=== PATIENT | male | born 1980 | race Caucasian/White ===

== ENCOUNTER 2019-02-21 19:41 | Inpatient (IN) | payer OTHER ==
[~2019-02-21] VITALS: Ht 180.3 cm; Wt 109.8 kg
[2019-02-21 19:41] VITALS: BP 132/70
[2019-02-21 19:51] LABS: BE(vivo) -1.4 mmol/L (-2 to +3); HCO3 22.3 mmol/L (22.0-26.0); PCO2 34.5 mmHg (35.0-45.0); pH 7.428 (7.360-7.450); sO2 95.9 % (92.0-98.0)
[2019-02-21 19:58] LABS: HEMATOCRIT 38.2 % (42.0-52.0); HEMOGLOBIN 13.1 gm/dL (14.0-18.0); MCH 28.1 pg (26.0-34.0); MCHC 34.4 g/dL (28.0-37.0); MCV 81.9 fL (80.0-100.0); PLATELET COUNT 534 thou/uL (150-400); RBC 4.67 mil/uL (4.50-6.00); RDW 13.7 % (10.5-14.5); WBC 17.7 thou/uL (4.0-11.0)
[2019-02-21 20:04] LABS: ANION GAP 11 mmol/L (7-16); BUN 10 mg/dL (7-18); CALCIUM 9.6 mg/dL (8.5-10.1); CHLORIDE 96 mmol/L (98-107); CO2 26 mmol/L (21-32); CREATININE 1.1 mg/dL (0.7-1.3); GLUCOSE 342 mg/dL (74-106); POTASSIUM 3.5 mmol/L (3.5-5.1); SODIUM 133 mmol/L (136-145)
[2019-02-21 20:13] LABS: ALBUMIN 4.1 g/dL (3.4-5.0); DIRECT BILIRUBIN 0.5 mg/dL (<0.1-0.3); SGOT 42 U/L (15-37); SGPT 46 U/L (30-65); TOTAL BILIRUBIN 1.2 mg/dL (<0.1-1.0); TROPONIN-I <0.06 ng/mL (<0.06)
[2019-02-21 20:24] LABS: ABSOLUTE NEUTROPHILS 13.5 thou/uL (1.4-8.2); ANISOCYTOSIS 1+; LARGE PLATELETS OCCASIONAL
[2019-02-21 20:29] LABS: URINE BILIRUBIN NEGATIVE (Negative); URINE BLOOD NEGATIVE (Negative); URINE CLARITY CLEAR; URINE COLOR YELLOW; URINE GLUCOSE-RANDOM* 3+ (Negative); URINE KETONES NEGATIVE (Negative); URINE LEUKOCYTES-REFLEX NEGATIVE (Negative); URINE NITRITE-REFLEX NEGATIVE (Negative); URINE PROTEIN (DIPSTICK) TRACE (Negative); URINE SPECIFIC GRAVITY <= 1.005 (1.005-1.035)
[2019-02-21 23:23] LABS: AMP/METHAMP Negative (Negative); BARBITURATES Negative (Negative); BENZODIAZEPINES Negative (Negative); COCAINE Negative (Negative); METHADONE Negative (Negative); OPIATES POSITIVE (Negative); PCP Negative (Negative)
[2019-02-22] VITALS (36 sets, daily range): BP systolic 110–188; BP diastolic 69–98
--- NOTE | 2019-02-22 04:40 | NUR ---
PT ARRIVED FROM ED TO UNIT @ 0015 WITH BIPAP. ASSESSMENT CHARTED. PT TOLERATING BIPAP AND IS NPO. PT'S PAIN IS BETTER WITH MORPHINE AND LESS ACTIVITY. POSSIBLE PLANS FOR IR FOR ABSCESS I/D. CALL LIGHT IN REACH. CONTINUE TO MONITOR.
[2019-02-22 05:35] LABS: HEMATOCRIT 32.7 % (42.0-52.0); HEMOGLOBIN 11.2 gm/dL (14.0-18.0); MCHC 34.2 g/dL (28.0-37.0); RBC 3.99 mil/uL (4.50-6.00); RDW 13.6 % (10.5-14.5); WBC 12.9 thou/uL (4.0-11.0)
[2019-02-22 05:43] LABS: CALCIUM 9.2 mg/dL (8.5-10.1); CREATININE 0.8 mg/dL (0.7-1.3)
--- NOTE | 2019-02-22 08:27 | EKG ---
[place] [address] [facility] [place] [address] ELECTROCARDIOGRAM REPORT Name: ARNOLD FORD Room #: 236-P ADM IN M.R.#: [id number] ������������������ Admission: 02/21/19 ������������������ Attend Phys: Heron Mccallum MD Discharge: ������������������ Date of : 82 Report #: [id number] ����������������������������������������������������������������� [id number] THIS REPORT FOR: //name// [facility] ED Test Date: 2019-02-21 Test Time: 19:42:31 Pat Name: ARNOLD FORD Department: Room: 236 Gender: M Marketing Financial Analyst: JESSI : 1980 Requested By: Kevin Perez Order Number: [id number] MD: Anthony Krishnamurthy Measurements Intervals [place] Rate: 128 P: 126 DE: 203 QRS: 180 QRSD: 111 T: -13 QT: 347 QTc: 507 Interpretive Statements Sinus tachycardia Prolonged DE interval Poor R wave progression Prolonged QT interval No previous ECG available for comparison Electronically Signed On 02-22-2019 8:26:47 CDT by Anthony Krishnamurthy [email or web address] ��������������������������������������������� <ELECTRONICALLY SIGNED> ���������������������������������������� By: Anthony Krishnamurthy MD, [facility] ��������������������������������������������� 02/22/19 0826 41 41 Anthony Krishnamurthy MD, FACC /EPI
[2019-02-22 11:10] LABS: GLYCOHEMOGLOBIN (HGB A1C) 9.4 % (4.8-5.6)
--- NOTE | 2019-02-22 16:19 | NUR ---
INITIAL ASSESSMENT: IRVING reviewed chart and spoke with nursing and attending physician. Pt was admitted from home due to hypoxic respiratory failure. Pt with right sided pneumonia. Pt is currently on continuous bipap. Pt is febrile and is on IV abx. SW met with pt at bedside. Introduced role of SW. Pt is alert/orientated x 4. Pt able to answer simple questions while on bipap. Pt reports he lives at home. Prior to admission, he was working at [employer] and is independent with ADLs. No use of DME. Pt has a girlfriend, Aleksandar, who is listed as a contact. Pt does not wish to have anyone else listed as a contact. Pt with hx of DM type 2. Pt states he has the equipment and supplies at home to check his blood sugar, but does not check it. Pt does not have a PCP or health insurance. [employer] to meet with pt to assist with possible Medicaid application and/or financial assistance application for [facility]. Pt to be provided with Health Resource Guide and prescription discount cards. Plan is for pt to discharge back home when medically stable. IRVING is following to assist as needed with discharge planning.
--- NOTE | 2019-02-22 18:16 | NUR ---
PATIENT RESTING QUIETLY ON BIPAP, FIO2 WEANED TO 50% WITH SAT 94%. PLACED ON 12L/HIGH FLOW NASAL CANNUAL FOR MEAL AND TOLERATED WITHOUT DESATURATION. BREATHE SOUNDS CLEAR IN THE UPPER LOBES RIGHT SIDE MORE DIMINISHED THAN LEFT. TEMP DOWN AFTER TYLENOL. RESP RATE IN THE LOWER 20.S AT REST BUT UP TO THE 40'S WHEN OFF BIPAP. MONITOR SINUS TACH. USING CELL PHONE. CAN CONVERSE WITH STAFF IN SHORT SENTENCES. CULTURES SENT AND RESULTS ARE PENDING. REASSURANCE GIVEN.
[2019-02-23] VITALS (32 sets, daily range): BP systolic 118–195; BP diastolic 69–115
--- NOTE | 2019-02-23 00:51 | NUR ---
ASSUMED CARE OF PT AT 1900 YESTERDAY. PT ON BIPAP, FIO2 HAS BEEN TITRATED DOWN TO 45%. PT HAS BEEN FEBRILE SINCE INITIAL ASSESSMENT. ROOM HAS BEEN COOLED, ICE PACKS APPLIED, AND TYLENOL HAS BEEN GIVEN TWICE. PT'S TEMP WAS NOT IMPROVING INITIALLY, BUT IS NOW SLOWLY STARTING TO COME DOWN. PT DENIED PAIN AT THE BEGINNING OF THE SHIFT, BUT MORPHINE JUST GIVEN FOR INCREASING PAIN IN THE RIGHT CHEST. NO ANXIETY SO FAR TONIGHT, PT HAS BEEN CALM AND COOPERATIVE. WILL CONTINUE TO MONITOR.
[2019-02-23 05:25] LABS: HEMATOCRIT 34.4 % (42.0-52.0); HEMOGLOBIN 11.5 gm/dL (14.0-18.0); MCH 27.8 pg (26.0-34.0); MCHC 33.4 g/dL (28.0-37.0); RBC 4.15 mil/uL (4.50-6.00); RDW 13.6 % (10.5-14.5); WBC 13.7 thou/uL (4.0-11.0)
[2019-02-23 05:39] LABS: CALCIUM 9.5 mg/dL (8.5-10.1); CREATININE 0.9 mg/dL (0.7-1.3); POTASSIUM 4.3 mmol/L (3.5-5.1)
--- NOTE | 2019-02-23 07:32 | NUR ---
PT'S TEMP CONTINUED TO BE ELEVATED THIS MORNING. Brenna LOW SCALE MECHANIC NOTIFIED AND SAID TO CONTINUE WITH TYLENOL. TYLENOL GIVEN AGAIN THIS MORNING, WITH NO IMPROVEMENT WHEN REASSESSED. THIS INFORMATION WAS PASSED ON TO DUNG REYES.
[2019-02-23 10:57] LABS: APTT 38.9 Seconds (24.5-32.8); INR 1.1; PROTIME 11.4 Seconds (9.3-11.4)
--- NOTE | 2019-02-23 18:39 | HC ---
[facility] [place] [address] CONSULTATION Name: ARNOLD FORD Room #: 236-P [facility] IN M.R.#: [id number] Admission: 02/21/19 ������������������ Attend Phys: Heron Mccallum MD Discharge: ������������������ Date of : 82 Report #: [id number] THIS REPORT FOR: //name// CC: Nils WATT PCP DATE OF SERVICE: 02/22/2019 PULMONARY CONSULTATION REFERRAL PHYSICIAN: Heron Mccallum M.D. REASON FOR REFERRAL: Pneumonia. HISTORY OF PRESENT ILLNESS: The patient is a 38-year-old white male who presents to the ED with acute onset of chest pain and dyspnea. A Pulmonary consultation was requested. The patient recently underwent cholecystectomy. He was doing fairly well until the day of presentation. He started to develop sharp right-sided pleuritic-type chest pain with dyspnea, radiating. He also complained of diaphoresis. Pain radiated to the back. It was felt to be sharp and stabbing. Chest x-ray and chest CT were reviewed, showing consolidation in the right lower lung field. CT chest shows a wedge-shaped consolidation abutting the pleura in the approximate lateral basal segment of the right lower lobe, with hypodensity within the consolidation. Small right-sided pleural effusion is seen. Otherwise, the patient denies any past history of chronic lung disease or recent nausea or vomiting. PAST MEDICAL HISTORY: Otherwise unremarkable, other than the cholecystectomy. ALLERGIES: PENICILLIN, REACTIONS NOT SPECIFIED. HOME MEDICATIONS: None. FAMILY HISTORY: Noncontributory. SOCIAL HISTORY: The patient is a lifetime nonsmoker. Denies any alcohol use, denies any recreational drug use. REVIEW OF SYSTEMS: Negative; otherwise, as mentioned above. PHYSICAL EXAMINATION: [facility] [address] [place] [address] CONSULTATION Name: ARNOLD FORD Room #: 236-[facility] IN .R.#: [id number] Admission: 02/21/19 ������������������ Attend Phys: Heron Mccallum MD Discharge: ������������������ Date of : 82 Report #: [id number] GENERAL: On examination, he is awake, alert. He appears to be in moderate distress due to dyspnea and pain. He is tolerating the BiPAP. VITAL SIGNS: Temperature maximum has been around 102.7 degrees Fahrenheit, pulse is 100, respiratory rate is 20, blood pressure 165/83 mmHg and saturation 97%. HEENT: Normocephalic, atraumatic. NECK: Supple, without any lymphadenopathy or thyromegaly. CHEST: Breath sounds are decreased in the right base. Rales are heard in the base. No wheezes. CARDIOVASCULAR: Normal S1, S2. There are no murmurs or gallops. There is no JVD. There is no carotid bruit. Pulses are 2+/4+ bilaterally. ABDOMEN: Soft, nontender. No organomegaly or masses felt. GENITOURINARY: Deferred. RECTAL: Deferred. EXTREMITIES: There is no edema, cyanosis or clubbing. LABORATORY DATA: Chest x-ray and chest CT as mentioned above. No evidence of pulmonary embolus. There is a peripheral calcified 2.2 cm left lower lobe pole thyroid nodule. Lactic acid is 2.6. Electrolytes are normal. Bicarbonate is 26. Liver enzymes are mildly elevated. WBC is 17,700, without evidence of bandemia. Lymphopenia is noted. Hemoglobin is normal, platelets are mildly increased. Troponin is normal. Arterial blood gas revealed pH of 7.41, pCO2 of 34 and pO2 of 78. IMPRESSION: 1. Pneumonia, right lower lobe, possible necrotizing. There is a questionable history of aspiration. 2. Acute hypoxic respiratory failure due to pneumonia, right lower lobe, possible necrotizing along with severe sepsis. 3. Recent cholecystectomy. RECOMMENDATIONS: For now, I think broad-spectrum antibiotics to cover for presumed pneumonia. Given the presence of probable abscess, I would also cover for gram negative and anaerobes. We will defer antibiotics to Infectious Disease. If the patient does not respond to antibiotics, may consider needle aspiration for further diagnosis. The patient is at risk for developing parapneumonic effusions. We will follow closely. DVT and GI prophylaxis recommended. [address] [address] CONSULTATION Name: ARNOLD FORD Room #: 236-[facility] IN .R.#: [id number] Admission: 02/21/19 ������������������ Attend Phys: Heron Mccallum MD Discharge: ������������������ Date of : 82 Report #: [id number] Thank you for this consultation. ��������������������������������������������� <ELECTRONICALLY SIGNED> ���������������������������������������� By: Fabrizio Turner MD ��������������������������������������������� 02/23/19 1839 1048 1105 Fabrizio Turner MD /nt
--- NOTE | 2019-02-23 19:49 | NUR ---
SHIFT SUMMARY PATIENT REMAINS ON BIPAP AND FEBRILE. TEMP MAX 102.9 DOWN TO THE 100"S AFTER TYLENOL, DR SALGUERO AWARE, NO ORDERS. CHEST ULTRASOUND COMPLETED BUT DID NOT SHOW ENOUGH FLUID TO CONTINUE WITH THE THOROCENTESIS. BP ELEVATED WITH ANXIETY AND MOVEMENT. MONITOR SINUS TACH. POOR APPITITE, TAKING SIPS OF WATER WITH MEDS AND SOME FLUIDS WITH MEALS. REASSURANCE GIVEN.
[2019-02-24] VITALS (54 sets, daily range): BP systolic 90–210; BP diastolic 53–102
--- NOTE | 2019-02-24 04:31 | NUR ---
ASSUMED CARE OF PT. AT 1900. PT. COMPLAINS OF NON CARDIAC CHEST PAIN THAT RADIATES TO THE BACK MORPHINE X2 GIVEN. PT. IS A&O X4, PLEASANT AND COOPERATIVE. PT. REMAINS FEBRILE THROUGHOUT THE NIGHT X3 DOSES OF TYLENOL GIVEN, ALONG WITH ICE PACKS. CESIA GARCIA CONTACTED TO GET HYDRALIZINE ORDERED FOR HTN PRN X2 DOSES GIVEN. PT. REMAINS IN SINUS TACHYCARDIA IN 110S-120S. PT. SWITCHED FROM BIPAP TO HEATED HIGH FLOW TO HAVE BREAK FROM BIPAP. PT. PREFERS BIPAP BECAUSE IT MAKES THE PT. MORE RELAXED AND IS BETTER ABLE TO SLEEP. ASSESSMENTS AND VITAL SIGNS CHARTED. PLAN OF CARE IS TO CONTINUE TO TREAT FOR INFECTION AND MAINTAIN OXYGENTATION WITH BIPAP. WILL CONTINUE TO MONITOR.
[2019-02-24 04:51] LABS: HEMATOCRIT 33.9 % (42.0-52.0); HEMOGLOBIN 11.3 gm/dL (14.0-18.0); MCH 27.6 pg (26.0-34.0); MCHC 33.3 g/dL (28.0-37.0); MCV 82.8 fL (80.0-100.0); RBC 4.09 mil/uL (4.50-6.00); RDW 13.5 % (10.5-14.5); WBC 16.9 thou/uL (4.0-11.0)
[2019-02-24 04:59] LABS: CALCIUM 8.6 mg/dL (8.5-10.1); CREATININE 0.8 mg/dL (0.7-1.3); POTASSIUM 3.4 mmol/L (3.5-5.1)
[2019-02-24 17:38] LABS: BE(vivo) -1.9 mmol/L (-2 to +3); HCO3 23.8 mmol/L (22.0-26.0); PCO2 44.5 mmHg (35.0-45.0); PO2 88.8 mmHg (80.0-100.0); pH 7.346 (7.360-7.450); sO2 96.3 % (92.0-98.0)
[2019-02-24 18:15] LABS: APTT 37.5 Seconds (24.5-32.8); INR 1.1; PROTIME 11.1 Seconds (9.3-11.4)
[2019-02-24 19:15] LABS: CLARITY CLOUDY; COLOR DARK YELLOW; TOTAL VOLUME 9.5 mL
--- NOTE | 2019-02-24 19:21 | NUR ---
CONSULTED TO PLACE A PICC FOR A PATIENT IN ICU POST INTUBATION. ORDER NOTED AND CONSENT PER MEDICAL NECESSITY BY DR. GUTIERREZ. THE RIGHT UPPER ARM BASILIC WAS WIDLEY PATENT. A #5F TRIPLE LUMEN POWER PICC WAS PLACED PER HOSPITAL POLICY AFTER A BEDSIDE TIMEOUT WAS COMPLETE. LINE 40CM ADVANCED WITHOUT DIFFICULTY TO 1 CM EXTERNAL. A STAT CHEST XRAY WAS ORDRED, THE PATIENT TRANSFERED TO IR AND IR MD NOTED IN HIS DICTATION THE PICC LINE WAS IN GOOD POSITION FOR USE.
[2019-02-24 19:28] LABS: BF NUCLEATED CELLS 56; BF RBC 3
--- NOTE | 2019-02-24 19:32 | NUR ---
ASSUMED CARE 0730 AM, ALERT AND ORIENTED X4. AFEBRILE THIS MORNING, REMIANS TACHY 108-120/MIN, V/S CHARTED. PATIJASMIN WAS TAKEN TO CT AT 1430, AND HAD LAY FLAT ON THE CT, HE GAETANO INTO RESPITORY DISTRESS AND DR GUTIERREZ NOTIFIED. AT 1500 >PATIENT FEBRILE, BP,HR, AND REPIORY RATE INCREASED. >INTUBATED AND BRONCHOSCPY WAS DONE AT BEDSIDE PLS SEE DR GUTIERREZ REPORT. >SEDATED WITH PROPOFOL AND VERSED. >TAKEN TO IR AND PLACED RT CHEST TUBE. >OG AND PICC LINE PALCED. >BRAYAN WRES RESTARINTS APPLIED FOR PAIENT SAFETY. >NEW POC INTIATED AND WILL CONTINUE TO MONITOR.
[2019-02-24 20:06] LABS: BF MACROPHAGE 3; BF NEUTROPHILS 86
[2019-02-25] VITALS (62 sets, daily range): BP systolic 95–128; BP diastolic 51–76
--- NOTE | 2019-02-25 04:23 | NUR ---
ASSUMED CARE OF PT. AT 1900. PT. RETURNED FROM IR WITH CHEST TUBE IN PLACE AT AROUND 1910. PT. IS RESTLESS AND HAS RESTAINTS BILATERAL WRISTS IN PLACE. PT. REMAINS STABLE OVERNIGHT, WITH STABLE VITAL SIGNS. PRESSURES SOFT AT TIMES DUE TO PROPOFOL. FIO2 TITRATED FROM 100 TO 50% PER RT. PT. REMAINS SINUS TACHYCARDIC. AFEBRILE. NO BM. PT. HAS MODERATE AMOUNT OF DRAINAGE FROM CHEST TUBE AND ADEQUATE URINARY OUTPUT. ASSESSMENTS AND VITAL SIGNS CHARTED. MEDICATION TITRATION CHARTED. PLAN OF CARE IS TO CONTINUE TO MONITOR INFECTION AND MAINTAIN OXYGENATION WITH VENTILATION. WILL CONTINUE TO MONITOR.
[2019-02-25 04:25] LABS: BE(vivo) -5.2 mmol/L (-2 to +3); HCO3 19.4 mmol/L (22.0-26.0); PCO2 34.7 mmHg (35.0-45.0); pH 7.366 (7.360-7.450); sO2 93.2 % (92.0-98.0)
[2019-02-25 05:17] LABS: HEMATOCRIT 29.7 % (42.0-52.0); HEMOGLOBIN 9.9 gm/dL (14.0-18.0); MCH 27.8 pg (26.0-34.0); MCHC 33.3 g/dL (28.0-37.0); MCV 83.4 fL (80.0-100.0); RBC 3.56 mil/uL (4.50-6.00); RDW 13.5 % (10.5-14.5); WBC 12.6 thou/uL (4.0-11.0)
[2019-02-25 05:23] LABS: CALCIUM 9.2 mg/dL (8.5-10.1); CREATININE 0.7 mg/dL (0.7-1.3); POTASSIUM 3.6 mmol/L (3.5-5.1)
[2019-02-25 15:08] LABS: BODY FLUID PROTEIN 5.2 g/dL (())
[2019-02-26] VITALS (75 sets, daily range): BP systolic 111–148; BP diastolic 66–90
[2019-02-26 04:06] LABS: BE(vivo) 0 mmol/L (-2 to +3); HCO3 23.8 mmol/L (22.0-26.0); PCO2 35.7 mmHg (35.0-45.0); PO2 74.5 mmHg (80.0-100.0); pH 7.441 (7.360-7.450); sO2 95.5 % (92.0-98.0)
--- NOTE | 2019-02-26 04:17 | NUR ---
ASSUMED CARE OF PT AT 1900. WHILE ON SEDATION VACATION PT CAN NOD Y/N TO SIMPLE QUESTIONS. DENIES PAIN. HEMODYNAMICALLY STABLE. HEART RATE AND RHYTHM SR ON MONITOR, CAN GET TACHYCARDIC. ADEQUATE URINARY OUTPUT. ADEQUATE DRAINAGE FROM CHEST TUBE. TUBE FEEDS ON HOLD AT 0400 DUE TO HIGH RESIDUAL. HYPOACTIVE BOWEL SOUNDS AND NO BM TONIGHT. PLAN OF CARE IS TO CONTINUE TO MONITOR OXYGENATION WITH VENTILATION AND TO MONITOR CHEST TUBE. ASSESSMENTS AND VITAL SIGNS CHARTED. MEDICATION TITRATION CHARTED. WILL CONTINUE TO MONITOR.
[2019-02-26 05:50] LABS: HEMATOCRIT 26.8 % (42.0-52.0); MCH 27.9 pg (26.0-34.0); MCHC 33.7 g/dL (28.0-37.0); MCV 82.7 fL (80.0-100.0); RBC 3.24 mil/uL (4.50-6.00); RDW 13.6 % (10.5-14.5); WBC 11.6 thou/uL (4.0-11.0)
[2019-02-26 06:21] LABS: CALCIUM 8.6 mg/dL (8.5-10.1); CREATININE 0.6 mg/dL (0.7-1.3); POTASSIUM 3.8 mmol/L (3.5-5.1)
--- NOTE | 2019-02-26 10:09 | NUR ---
IRVING reviewed chart and spoke with nursing. Pt remains in the ICU. Pt is intubated and sedated. Pt has chest tube in place and will have surgery tomorrow due to empyema. Nursing to discuss with pt's girlfriend, who his next of kin is, and who would sign pt's consents. IRVING is following to assist as needed with discharge planning.
--- NOTE | 2019-02-26 11:09 | NUR ---
Nutrition: Pt receiving significant calories from propofol at this time. To better meet needs, REC change tube feeding formula to Vital HP to run at 45 mL/hr. If IVFs can D/C suggest 1 packet beneprotein powder in 250 mL water flushes q 6 hrs.
--- NOTE | 2019-02-26 14:44 | NUR ---
PATIENT FOUND SCOOTED DOWN IN BED WITH TIGHT BLOOD COLLECTOR ON ETT WITH HIS LEFT HAND. ETT PARTIALLY OUT AND ABLE TO SPEAK AROUND TUBE. PROPOFOL AND VERSED TURNED OFF. RT HERE AND PATIENT EXTUBATED AT 1428 AND PLACED ON FACE SHIELD AT 60% FIO2. STOMACH DECOMPRESSED AND ORAL GASTRIC TUBE PULLED.
[2019-02-26 16:38] LABS: BE(vivo) -0.2 mmol/L (-2 to +3); HCO3 22.7 mmol/L (22.0-26.0); PCO2 31.3 mmHg (35.0-45.0); PO2 63.4 mmHg (80.0-100.0); pH 7.479 (7.360-7.450); sO2 93.9 % (92.0-98.0)
[2019-02-26 19:15] LABS: BE(vivo) -1.9 mmol/L (-2 to +3); HCO3 20.5 mmol/L (22.0-26.0); PCO2 27.9 mmHg (35.0-45.0); PO2 61.9 mmHg (80.0-100.0); pH 7.485 (7.360-7.450); sO2 93.7 % (92.0-98.0)
[2019-02-26 20:05] LABS: IgG 781 mg/dL (700-1600); IgM 32 mg/dL (20-172)
--- NOTE | 2019-02-26 20:14 | NUR ---
AT DAVID 1830 PATIENT NOTED TO BE IN A FIB WITH RARE COUPLET PVC'S NOTED AND O2 SAT DOWN TO 88%. RT INFORMED AND FACE SHIELD INCREASED TO 60%. DR GARG PAGED BUT NO RESPONSE AND THEN DR BONILLA PAGED AND CALLED WITH ORDERS FOR ABG NOW, CAN PLACE ON BIPAP AND START AMINODARON DRIP. PRIOR PATIENT HAD HELP TO REPOSITION SELF AND TILT SELF, AND WAS RESTING QUIETLY WITH O2 SAT OF 92-93%. REASSURANCE GIVEN.
[2019-02-26 21:56] LABS: BE(vivo) 0.3 mmol/L (-2 to +3); HCO3 23.1 mmol/L (22.0-26.0); sO2 95.6 % (92.0-98.0)
[2019-02-26 22:07] LABS: IgA < 5 mg/dL (90-386)
[2019-02-27] VITALS (18 sets, daily range): BP systolic 99–130; BP diastolic 60–93
[2019-02-27 05:15] LABS: BE(vivo) 0.1 mmol/L (-2 to +3); HCO3 22.8 mmol/L (22.0-26.0); PCO2 30.7 mmHg (35.0-45.0); PO2 138.7 mmHg (80.0-100.0); pH 7.489 (7.360-7.450)
[2019-02-27 06:07] LABS: HEMATOCRIT 29.4 % (42.0-52.0); HEMOGLOBIN 9.7 gm/dL (14.0-18.0); MCHC 33.1 g/dL (28.0-37.0); MCV 84.5 fL (80.0-100.0); RBC 3.48 mil/uL (4.50-6.00); RDW 13.9 % (10.5-14.5)
--- NOTE | 2019-02-27 06:19 | NUR ---
ASSUMED PATIENT CARE AT 1900. PATIENT LYING IN BED AND IS AAOX4. PATIENT CURRENTLY IS IN A-FIB WITH RVR. STARTED THE AMIODARONE DRIP ORDERED. PATIENT IS ALSO BEING PLACED ON BIPAP WITH ABG'S TAKEN. DR. BONILLA NOTIFIED OF RESULTS. PATIENT C/O STOMACH DISCOMFORT. ZOFRAN GIVEN. PATIENT ALSO GIVEN MORPHINE TWICE. PATIENT KEPT NPO FOR PROCEDURE TODAY. HOURLY ROUNDING COMPLETED AND FALL PRECAUTIONS MAINTAINED. PATIENT REMAINS UNCHANGED ON PROGRESSING TOWARDS GOAL.
[2019-02-27 06:21] LABS: CALCIUM 8.4 mg/dL (8.5-10.1); CREATININE 0.6 mg/dL (0.7-1.3)
--- NOTE | 2019-02-27 11:10 | NUR ---
TO PRE-OP PER BED WITH O2 PER VENTIMASK AND AMINODARON INFUSING. PATIENT IS ALERT AND RESPONSIVE
--- NOTE | 2019-02-27 17:06 | PATH ---
[facility] [address] [place] [address] PATHOLOGY RPT PROCEDURE Name: ARNOLD FORD Room #: 236-P ADM IN M.R.#: [id number] ������������������ Admission: 02/21/19 ������������������ Date of : 82 Discharge: Report #: [id number] Path Case #: [id number] Note [facility] Accession Number: [id number] TESTS RESULT FLAG UNITS REF RANGE LAB Clinician Provided Cytology Information No. of containers..01 Other (Miscellaneous) Source: PLEURAL DIAGNOSIS: 02 PLEURAL NEGATIVE FOR MALIGNANT CELLS. SCANT CELLULARITY. THIS INTERPRETATION INCLUDES EVALUATION OF A CELL BLOCK. Pathologist ICD10: 02 J96.01 Signed out by: Gabbie Corrales MD, Pathologist NPI- [id number] Performed by: Sandy De, Residential Monitor ([facility]) Gross description: 01 25ML, YELLOW, CLEAR /LCS FLAG LEGEND: L-Low Normal,H-High Normal,LL-Alert Low,HH-Alert High <-Panic Low,>-Panic High,A-Abnormal,AA-Critical Abnormal Performed at: [address] [place] [address] Pillo Sethi MD, [address] [address] Gabbie Corrales MD, Specimen Comment: A courtesy copy of this report has been sent to Specimen Comment: [phone], . Specimen Comment: Report sent to / DR GARG Performed at: [address], [place], [place] [id number] MD Pillo Sethi MD Phone: [phone]
[2019-02-27 17:29] LABS: BE(vivo) -1.8 mmol/L (-2 to +3); HCO3 25.2 mmol/L (22.0-26.0); PCO2 52.8 mmHg (35.0-45.0); PO2 63.7 mmHg (80.0-100.0); sO2 89.8 % (92.0-98.0)
[2019-02-27 17:30] LABS: pH 7.297 (7.360-7.450)
[2019-02-27 17:58] LABS: HEMATOCRIT 34.3 % (42.0-52.0); HEMOGLOBIN 11.4 gm/dL (14.0-18.0); MCH 27.7 pg (26.0-34.0); MCHC 33.3 g/dL (28.0-37.0); MCV 83.2 fL (80.0-100.0); RBC 4.12 mil/uL (4.50-6.00); RDW 14.1 % (10.5-14.5); WBC 20.5 thou/uL (4.0-11.0)
[2019-02-27 18:10] LABS: CALCIUM 8.7 mg/dL (8.5-10.1); CREATININE 0.7 mg/dL (0.7-1.3); POTASSIUM 4.2 mmol/L (3.5-5.1)
[2019-02-27 18:49] LABS: BE(vivo) -0.5 mmol/L (-2 to +3); HCO3 25.9 mmol/L (22.0-26.0); PCO2 50.1 mmHg (35.0-45.0); PO2 68.6 mmHg (80.0-100.0); pH 7.332 (7.360-7.450); sO2 92.4 % (92.0-98.0)
--- NOTE | 2019-02-27 20:31 | NUR ---
PATIENT RETURNED TO ROOM DIRECTLY FROM OR AT 1650, PLACED ON MONITOR, LINES CALIBRATED AND ASSESSED. CHEST TUBES TO WATER SEAL AND MARKED. PATIENT MONITORED AND WOULD OPEN EYES AND RESTLESS AT TIMES, PROPOFOL TITRATED AND PAIN MEDS GIVEN WITH SOME RELIEF. ABG AND LABS DRAWN PER ORDER AND RATE INCREASED TO 18 PER ORDER. O2 SAT 90 TO 92%. MONITOR SHOWING NSR. RAGHAV AND CUFF PRESSURES ARE COORALATING. REASSURNACE GIVEN AND FRIEND AWARE OF SITUATION.
--- NOTE | 2019-02-27 22:40 | NUR ---
REPORT TO MEGHNA REYES
[2019-02-28] VITALS (13 sets, daily range): BP systolic 119–138; BP diastolic 66–98
[2019-02-28 05:08] LABS: BE(vivo) 2.5 mmol/L (-2 to +3); PCO2 36.3 mmHg (35.0-45.0); PO2 62.3 mmHg (80.0-100.0); pH 7.473 (7.360-7.450); sO2 93.4 % (92.0-98.0)
[2019-02-28 05:22] LABS: HEMATOCRIT 34.3 % (42.0-52.0); HEMOGLOBIN 11.4 gm/dL (14.0-18.0); MCH 27.7 pg (26.0-34.0); MCHC 33.2 g/dL (28.0-37.0); MCV 83.4 fL (80.0-100.0); RBC 4.12 mil/uL (4.50-6.00); RDW 14.2 % (10.5-14.5); WBC 16.3 thou/uL (4.0-11.0)
[2019-02-28 05:30] LABS: CREATININE 0.7 mg/dL (0.7-1.3); POTASSIUM 3.9 mmol/L (3.5-5.1)
[2019-02-28 06:07] LABS: IgG 770 mg/dL (700-1600)
--- NOTE | 2019-02-28 06:37 | NUR ---
END OF SHIFT SUMMARY: Pt has remained stable overnight. Right lateral chest tubes x4 remain patent to water seal, no air leak, sero-sanguinous drainage. Pt remains on vent at FiO2 70%, sat 90-94%. Suctioning small to moderate amounts of thin yellow sputum approximately q 4 hr. Pt lightly sedated with Propofol at 75 mcg/kg/min, and prn IVP Versed and Fentanyl when restless and hypertensive. Remains in soft wrist restraints bilaterally to prevent self extubation. Monitor remains sinus tach, rates 106-116. No episodes of a-fib tonight. Urine output adequate, 950 cc this shift.
--- NOTE | 2019-02-28 17:02 | O ---
[facility] [place] [address] OPERATIVE REPORT Name: ARNOLD FORD Room #: 236-P ADM IN M.R.#: [id number] Admission: 02/21/19 ������������������ Attend Phys: Heron Mccallum MD Discharge: ������������������ Date of : 82 Report #: [id number] THIS REPORT FOR: //name// CC: Nils Mccallum NO PCP DATE OF SERVICE: 02/27/2019 PREOPERATIVE DIAGNOSIS: Empyema, right chest. POSTOPERATIVE DIAGNOSIS: Empyema, right chest. OPERATION: Bronchoscopy, right video-assisted thoracoscopy, right thoracotomy with decortication. SURGEON: Nils Curiel MD SENIOR MECHANICAL ENGINEER: Prince Sheth. ANESTHESIA: General. INDICATIONS: The patient is a 38-year-old with loculated pleural effusion. The patient presented with respiratory distress and had required intubation. Thoracentesis and chest tube placement were done, but this empyema was too organized for this approach. FINDINGS AND TECHNIQUE: After general anesthesia was established, flexible diagnostic bronchoscopy was performed. Some scattered thick secretions were seen and the endobronchial tree was inflamed acutely, but no specific endobronchial lesions were noted. Because the patient had desaturated when the tube was placed, the decision was made to place the bronchial juan jose. This was done using a 6 x 14 Karen catheter placed under bronchoscopic guidance. The patient was positioned with right side up. Exposure was obtained through the right video-assisted thoracoscopy port. The lung appeared to be adhesed to the chest wall and it was not possible to either admit the scope. Digital exploration was done and this was similarly fruitless. Therefore, the exposure was extended to a thoracotomy. Exposure was obtained through posterolateral thoracotomy. Chest was entered through an available interspace. There was a loculated pleural effusion with organized seropurulent collection laterally. The entire right lung was decorticated down to visceral pleura and both fissures were developed. There [facility] [address] [place] [address] OPERATIVE REPORT Name: ARNOLD FORD Room #: 236-P ADM IN .R.#: [id number] Admission: 02/21/19 ������������������ Attend Phys: Heron Mccallum MD Discharge: ������������������ Date of : 82 Report #: [id number] was an abscess seen in the posterolateral portion of the right upper lobe adherent to the fissure right where the confluence of the major and minor fissure were but the abscess was confined to the upper lobe. My suspicion is as it was from reviewing the evolution on the CT scan that these abscesses ruptured and this led to the empyema. When the entire lung had been decorticated down to visceral pleura, the chest was irrigated with copious amounts of saline and the lung was ventilated and with additional fibrin, peel of the lung was removed. When the lung had been decorticated, chest tubes were placed to drain the anterior, lateral, posterior, and inferior pleural surfaces. Chest was closed in the usual fashion. Hemostasis was ascertained prior to chest closure. The patient was taken to the recovery area in good condition having tolerated the procedure well. All counts reported as correct. ��������������������������������������������� <ELECTRONICALLY SIGNED> ���������������������������������������� By: Nils Curiel MD ��������������������������������������������� 02/28/19 1702 1626 1714 Nils Curiel MD /nt
--- NOTE | 2019-02-28 17:02 | HC ---
[facility] [place] [address] CONSULTATION Name: ARNOLD FORD Room #: 236-P ADM IN M.R.#: [id number] Admission: 02/21/19 ������������������ Attend Phys: Heron Mccallum MD Discharge: ������������������ Date of : 82 Report #: [id number] THIS REPORT FOR: //name// CC: Nils WATT [facility] DATE OF SERVICE: 02/24/2019 We were asked by Dr. Turner to see the patient. HISTORY OF PRESENT ILLNESS: The patient is a 38-year-old with parapneumonic effusion. The patient was admitted on 02/21/2019 with shortness of breath and right-sided chest pain. The patient was just intubated and all of the information I have is from the chart and discussion with Dr. Turner. Chart describes the initial symptoms as sharp and stabbing and as mentioned, the patient had shortness of breath. Initial CT scan showed a wedge-shaped infiltrate in the right upper lobe laterally. CT scan showed no evidence of pulmonary embolism, however. Over the course of several days, a new CT scan done today shows progression in the diffuse pneumonic infiltrate on the right and the pleural effusion has also increased significantly with clear loculations in the right lung apex and a fluid collection in the lower lobe region as well. Over the course of the hospitalization, the patient has been afebrile, peaking at 39.4 yesterday at noon. The patient was 39.4 at midnight and this morning and is currently 38.6. The patient was just intubated for increasing respiratory distress and Dr. Turner is in the process of preparing to do bronchoscopy. PAST MEDICAL HISTORY: The patient denies past medical problems. MEDICATIONS: No home medication. ALLERGIES: ALLERGIC TO PENICILLIN. SOCIAL HISTORY: Nonsmoker. No drug use. REVIEW OF SYSTEMS: Not obtainable from the patient. Chart claims the patient is negative for fever or chills. PHYSICAL EXAMINATION: GENERAL: Currently, the patient is just intubated. VITAL SIGNS: Temperature 38.6, heart rate 119, sinus tachycardia, respiratory rate 22-28, blood pressure 149/83. HEENT: No scleral icterus, no arcus. NECK: No mass, no bruit. [facility] [address] [place] [address] CONSULTATION Name: ARNOLD FORD Room #: 236-P [facility] IN [facility].#: [id number] Admission: 02/21/19 ������������������ Attend Phys: Heron Mccallum MD Discharge: ������������������ Date of : 82 Report #: [id number] CHEST: Decreased breath sounds on the right side. HEART: Rhythm regular, tachycardic. ABDOMEN: Soft, no mass, no tenderness. EXTREMITIES: No clubbing, cyanosis or edema. Strong popliteal pulses bilaterally. SKIN: No rash or infection. NEUROLOGIC: No obvious way to test this with the patient paralyzed. IMPRESSION: The patient has empyema, probably parapneumonic with or without lung abscess. We note plans for bronchoscopy. It may be appropriate to perform pleural drainage while the patient is intubated. If this is unsuccessful, then video-assisted thoracoscopy and/or thoracotomy with decortication is appropriate. We will discuss with family prior to performing surgery if they are available. We do not plan surgery at this point, however. Thank you for the consult. ��������������������������������������������� <ELECTRONICALLY SIGNED> ���������������������������������������� By: Nils Curiel MD ��������������������������������������������� 02/28/19 1702 1607 1957 Nils Curiel MD /nt
--- NOTE | 2019-02-28 17:20 | NUR ---
SW reviewed chart and spoke with attending physician. Pt is s/p right thoracotomy and remains on the ventilator. Pt has 4 chest tubes intact. [employer] following pt to assist with financial application, as pt does not have health insurance. SW is following to assist as needed with discharge planning.
--- NOTE | 2019-02-28 19:55 | NUR ---
SHIFT SUMMARY: Pt is progressing, based on precedex infusion, titrated propofol to 10.5mcg/kg/min, and behaviour; Pt remained calm, & followed commands w/ sedation vacation. OG tube was initiated and confirmed by KUB. Tube feeding was initiated @1800 per order. Soft restraints x [address] Mccallum renewed the restraints order @1700 Dr. Curiel present at bedside and ordered to place the pleural chest tubes to wall suction.
[2019-03-01] VITALS (11 sets, daily range): BP systolic 115–138; BP diastolic 74–90
[2019-03-01 04:29] LABS: BE(vivo) 2.7 mmol/L (-2 to +3); HCO3 26.4 mmol/L (22.0-26.0); PCO2 37.4 mmHg (35.0-45.0); PO2 82.5 mmHg (80.0-100.0); pH 7.467 (7.360-7.450); sO2 96.7 % (92.0-98.0)
[2019-03-01 04:46] LABS: CALCIUM 8.1 mg/dL (8.5-10.1); CREATININE 0.7 mg/dL (0.7-1.3); POTASSIUM 3.9 mmol/L (3.5-5.1)
[2019-03-01 04:54] LABS: HEMATOCRIT 32.9 % (42.0-52.0); MCH 27.8 pg (26.0-34.0); MCHC 33.5 g/dL (28.0-37.0); MCV 82.8 fL (80.0-100.0); RBC 3.98 mil/uL (4.50-6.00); RDW 13.6 % (10.5-14.5); WBC 12.3 thou/uL (4.0-11.0)
--- NOTE | 2019-03-01 06:23 | NUR ---
PT REMAINS ON VENT FIO2 50% SATS 96% PT CONTINUES WITH MAINTENANCE IVFs AND PRECEDEX AT MAX WHILE REQUIRING PRN DOSES OF FENTANYL AND VERSED FOR PAIN AND VENT COMFORT. PT TOLERATING TUBE FEEDING AT 45ML/HR WORKING TOWARD GOAL OF 65ML/HR. PT REQUIRED PRN HYDRALAZINE THROUGHOUT SHIFT. PT AFEBRILE.
--- NOTE | 2019-03-01 10:24 | NUR ---
vascular access assessed continued need for PICC line, pt remains in ICU with numerous meds, central line remains appropriate at this time
[2019-03-01 10:56] LABS: BE(vivo) 2.3 mmol/L (-2 to +3); HCO3 25.7 mmol/L (22.0-26.0); PCO2 36.1 mmHg (35.0-45.0); PO2 85.3 mmHg (80.0-100.0); pH 7.471 (7.360-7.450)
--- NOTE | 2019-03-01 11:25 | NUR ---
PT PULLING TV'S IN 700-800'S, FOLLOWS COMMANDS WITH ALL EXTREMITIES, LIFTS HEAD OFF PILLOW. TOLERATED CPAP TRIAL. NOTIFIED DR. BONILLA OF [facility]G'S POST CPAP TRIAL. RECEIVED ORDERS FOR EXTUBATION. OG DC'D, EXTUBATED, THEN PLACED ON FACE MASK 60%. PT SPLINTING CHEST TUBE SITES, THEN TAKING DEEP BREATHS/COUGH WITH MOIST NONPRODUCTIVE COUGH AND PULLED 1250CC ON INCENTIVE SPIROMETER. RESP EVEN AND UNLABORED.
--- NOTE | 2019-03-01 17:05 | PATH ---
[facility] [address] [place] [address] PATHOLOGY RPT PROCEDURE Name: ARNOLD FORD Room #: 236-P ADM IN M.R.#: [id number] ������������������ Admission: 02/21/19 ������������������ Date of : 82 Discharge: Report #: [id number] Path Case #: [id number] [facility] Accession Number: [id number] . 01 Material submitted: . pleura - RIGHT PLEURAL EXUDATE. Modifiers: right . 01 Clinical history: . Empyema . 02 Diagnosis: Pleura, right pleural exudate, decortication: - Marked acute inflammation along with extensive fibrinous exudate, consistent with the provided history of empyema. (IUV:karri; 03/01/2019) QMS/03/01/2019 . 02 Electronically signed: . Gabbie Corrales MD, Pathologist NPI- [id number] . 01 Gross description: . The specimen is received in formalin, labeled "Arnold Ford, right pleural exudate". Received is a large amount of exudate admixed with possible pleural tissue measuring 12.8 x 9.7 x 3.3 cm in aggregate dimensions. No distinct nodules or lesions are noted grossly. The specimen is submitted representatively in cassette A1. (CAA; 02/28/2019) QAC/QAC . 02 Microscopic: . . . 02 Pathologist provided ICD-10: J86.9, R09.1 . 02 CPT . 161631 Specimen Comment: A courtesy copy of this report has been sent to Specimen Comment: [phone], . Specimen Comment: Report sent to / DR GARG Performed at: [address] [id number] MD Pillo Sethi MD Phone: [phone] Performed at: 02 [facility] [address] [place] [address] PATHOLOGY RPT PROCEDURE Name: ARNOLD FORD Room #: 236-P [facility] IN M.R.#: [id number] ������������������ Admission: 02/21/19 ������������������ Date of : 82 Discharge: Report #: [id number] Path Case #: [id number] [address] [place] [id number] MD Gabbie Corrales MD Phone: [phone]
--- NOTE | 2019-03-01 19:30 | NUR ---
PAIN CONTROLLED, PULLING 1250 ON INCENTIVE SPIROMETER, RESP EVEN AND UNLABORED, COUGHS UP SCANT SECRETIONS, ZOFRAN GIVEN FOR SLIGHT STOMACH UPSET WITH RELIEF. PROGRESSING.
[2019-03-02] VITALS (20 sets, daily range): BP systolic 106–144; BP diastolic 66–91
--- NOTE | 2019-03-02 06:00 | NUR ---
A VERY DELIGHTFUL PATIENT. IN GOOD SPIRITS. SINUS RHYTHM LUNGS DIMINISHED RIGHT CHEST DRESSING DRY AND INTACT WITH PAVEL. FENTANYL PRN INCISIONAL PAIN AND ZOFRAN FOR WAVES OF NAUSEA. 1000 CC UO THIS SHIFT. O FROM CHEST TUBES. FEET REMAINS EDEMATOUS. BATHED. WILL CONT TO MONITOR.
[2019-03-02 07:06] LABS: HEMATOCRIT 35.7 % (42.0-52.0); HEMOGLOBIN 11.8 gm/dL (14.0-18.0); MCH 27.4 pg (26.0-34.0); MCHC 33.1 g/dL (28.0-37.0); RBC 4.31 mil/uL (4.50-6.00); RDW 14.3 % (10.5-14.5); WBC 14.1 thou/uL (4.0-11.0)
[2019-03-02 07:20] LABS: CALCIUM 8.5 mg/dL (8.5-10.1); CREATININE 0.6 mg/dL (0.7-1.3); POTASSIUM 3.9 mmol/L (3.5-5.1)
--- NOTE | 2019-03-02 07:51 | NUR ---
PT IS POD #3 RIGHT THORACOTOMY WITH DECORTICATION. EXTUBATED 03/01/19 AND NOW ON 40% FACE SHIELD. PT WITHOUT MEDICAL INSURANCE AND [facility] FROM [facility] ATTEMPTED TO SPEAK WITH PT YESTERDAY BUT PT REQUESTED HE COME BACK. [facility] INDICATES [facility] WILL TRY AGAIN TODAY TO MEET WITH PT. NO WEEKEND DC PLANNED.
[2019-03-03] VITALS (61 sets, daily range): BP systolic 96–146; BP diastolic 66–93
--- NOTE | 2019-03-03 04:41 | NUR ---
ASSUMED CARE OF PT. AT 1900. PT. IS ALERT AND ORIENTED, C/O PAIN AT CHEST TUBE SITE. PT. REMAINS HEMODYNAMICALLY STABLE. AT 0345 PT. PLEURAL TUBE DISCONNECTED FROM SUCTION, CLAMPED, AND QUICKLY PUT BACK IN PLACE, STAT CHEST XRAY ORDERED. NO SIGNS OF PT. DISTRESS, VSS THROUGHOUT, NO SUBQ AIR NOTED. PT. REMAINS ON 2L NC 02, MAINTAINING OXYGENATION. NO BM, ADEQUATE URINARY OUTPUT, DENIES ANY N/V OR STOMACH PAIN. PROGESSING TOWARDS GOALS, WILL CONTINUE TO MONITOR.
[2019-03-03 05:29] LABS: CALCIUM 8.3 mg/dL (8.5-10.1); CREATININE 0.6 mg/dL (0.7-1.3); POTASSIUM 4.3 mmol/L (3.5-5.1)
[2019-03-03 05:34] LABS: HEMATOCRIT 39.3 % (42.0-52.0); HEMOGLOBIN 13.1 gm/dL (14.0-18.0); MCH 27.6 pg (26.0-34.0); MCHC 33.3 g/dL (28.0-37.0); MCV 82.7 fL (80.0-100.0); RBC 4.75 mil/uL (4.50-6.00); RDW 13.9 % (10.5-14.5); WBC 12.3 thou/uL (4.0-11.0)
--- NOTE | 2019-03-03 19:16 | NUR ---
PATIENT PROGRESSING TOWARDS OUTCOME GOALS PAIN CONTROLLED WITH PO MEDS. UP IN THE CHAIR TODAY AND VISITING WITH FAMILY. CHEST TUBE TO WATER SEAL BY DR LYNNE AT [address] NOW NSR AND O2 AT 4L/NC.
[2019-03-04] VITALS (34 sets, daily range): BP systolic 108–147; BP diastolic 69–95
--- NOTE | 2019-03-04 05:01 | NUR ---
ASSUMED CARE OF PT. AT 1900. PT IS ALERT AND ORIENTED X4. COMPLAINS OF PAIN AT CHEST TUBE SITE. NO FRESH DRAINAGE CHEST TUBE SITE, CHEST TUBES ARE PATENT WITH NO AIR LEAKS. PT. REMAINS HEMODYNAMICALLY STABLE AND MAINTAINS OXYGENATION WITH 4L O2 NC. PT HAD 2 BM AND HAD ADEQUATE URINARY OUTPUT. PT. IS PROGRESSING TOWARDS GOALS. WILL CONTINUE TO MONITOR.
--- NOTE | 2019-03-04 16:34 | NUR ---
ASSUMED CARE THIS AM, SLEEPING BUT AWAKES TO VOICE. DR. LYNNE AT BEDSIDE AND CHEST TUBES REMOVED AND DRESSING PLACED. CHEST XRAY COMPLETED AND NO PNUEMO. ORIENTED, NO COMPLAINTS OF PAIN, NAUSEA, OR VOMITING. SR/ST ON MONITOR. WILL PLAN TO MOVE OUT OF ICU TODAY. MARY TLC PICC REMOVED AND 20G TO LFA PLACED. OOB TO CHAIR X 4 HOURS THEN BACK TO BED WHEN COMPLAINING OF CT INCISION SITE PAIN OF 7/10. NORCO 2 TABS GIVEN WITH GOOD RESULTS.
--- NOTE | 2019-03-05 06:00 | NUR ---
PT AWAKE AND ALERT IN GOOD SPIRITS. SLEPT IN CHAIR FOR APPROX 4 HOURS TONIGHT. LUNGS DIMINSHED. VSS SINUS RHYTHM. RIGHT LATERAL RIGHT CHEST TUBE DRESSING DRY AND INTACT. WALKED WITH WALKER TO TOILET AND STEPHIE WELL HAD A MOD AMT LOOSE TO LIQUID BROWN STOOL. REMAINS A CCU OVERFLOW. WILL CONT TO MONITOR CLOSELY. A VERY DELIGHTFIL JULIUS.
[2019-03-05 08:00] VITALS: BP 135/81
[2019-03-05 09:09] LABS: HIV 1 AB Negative (Negative); HIV 2 AB Negative (Negative); HIV ANTIBODY Reactive (Non Reactive)
--- NOTE | 2019-03-05 10:15 | NUR ---
PATIENT TRANSFERRED TO 3W BED 349, AMBULATED WITH WALKER AND PT TO THE ELEVATOR AND THEN VIA W/C. HR UP TO 130 AND O2 SAT 93% ON 4L/NC WITH ACTIVITY AND RETURNED TO BASELINE WITHIN 2 MINUTES. SPOKE IN FULL COMPLETE SENTENCES. PAIN MEDS GIVEN PRIOR TO TRANSFER. TAKING DIET FAIR APPITITE.
[2019-03-05 10:45] VITALS: BP 131/85
--- NOTE | 2019-03-05 11:04 | NUR ---
PT ORIENTED TO RIOOM AND UNIT BERD LOW AND LOCKED, SIDE RAILS UPX 3,C ALL LIGHT IN REACH. TELE APPLIED. WILL CONTINUE TO ASSESS.
[2019-03-05 15:38] VITALS: BP 116/71
--- NOTE | 2019-03-05 16:16 | NUR ---
SW reviewed chart and spoke with nursing and attending physician. Pt transferred to 3W from ICU earlier today and is progressing towards goals for discharge. SW is following to assist as needed with discharge planning.
[2019-03-05 19:46] VITALS: BP 131/84
--- NOTE | 2019-03-06 03:18 | NUR ---
ASSUMED PT CARE AROUND 1900. A&OX4. C/O PAIN IN RT RIBS/POSTERIOR BACK AT INCISION SITE. HOWEVER, PT STATED PAIN WAS TOLERABLE AND HE DID NOT NEED ANY PAIN MEDICATION. PT INSTRUCTED TO CALL RN SHOULD HE NEED PAIN MEDS. DENIES ANY CHEST PAIN OR SOA. VSS. VOIDING ADEQUATELY PER URINAL. PT DID NOT SLEEP MUCH DURING THE NIGHT. NO MAJOR COMPLAINTS THIS SHIFT. RT RIBS/POSTERIOR BACK DRESSING C/D/I WITH PAVEL DRESSING IN PLACE. PROGRESSING TOWARD POC GOALS. WILL CONTINUE TO MONITOR FURTHER.
[2019-03-06 04:28] VITALS: BP 149/93
[2019-03-06 07:32] VITALS: BP 156/94
[2019-03-06 11:03] LABS: HEMATOCRIT 40.6 % (42.0-52.0); HEMOGLOBIN 13.3 gm/dL (14.0-18.0); MCH 27.2 pg (26.0-34.0); MCHC 32.8 g/dL (28.0-37.0); MCV 82.8 fL (80.0-100.0); PLATELET COUNT 472 thou/uL (150-400); WBC 17.7 thou/uL (4.0-11.0)
[2019-03-06 11:25] LABS: ALBUMIN 2.7 g/dL (3.4-5.0); CALCIUM 8.8 mg/dL (8.5-10.1); CREATININE 0.8 mg/dL (0.7-1.3); POTASSIUM 4.6 mmol/L (3.5-5.1); TOTAL BILIRUBIN 0.5 mg/dL (<0.1-1.0); TOTAL PROTEIN 6.3 g/dL (6.4-8.2)
[2019-03-06 11:35] LABS: ABSOLUTE NEUTROPHILS 14.9 thou/uL (1.4-8.2)
[2019-03-06 11:36] LABS: PLATELET ESTIMATE NORMAL
[2019-03-06 11:44] VITALS: BP 121/76
--- NOTE | 2019-03-06 12:47 | NUR ---
Nutrition: at follow up, wt stable from admit. Nsg reported pt with good appetite, no complaints. BG 239-290. Solumedrol and other meds reviewed. BUN 25, Cr 0.6. No recent albumin, last was 4.1. Assess at low nutrition risk.
--- NOTE | 2019-03-06 13:57 | NUR ---
SW reviewed chart and spoke with attending physician. Pt is progressing towards goals for discharge. Awaiting culture results to determine pt's abx at time of discharge. SW met with pt at bedside to provide update. SW offered to have medications priced at [facility] prior to discharge, as pt does not have health insurance. Pt agreeable with plan. SW to provide pt with Health Resource Guide to establish primary care and prescription discount cards. IRVING is following to assist as needed with discharge planning.
[2019-03-06 16:27] VITALS: BP 123/77
--- NOTE | 2019-03-06 18:45 | NUR ---
ABEL HAS AMBULATED ABOUT UNIT TODAY WITH NO DIFFICULTY NOTED. ONE DOSE OF LASIX ADMINISTERED EALIER AND IT WAAS EFFECTIVE SWELLING TO BLE HAVE SIGNIFICANTLY DECREASED. RESPIRATIONS ARE NON LABORED. INCRASED HR WITH EXERTION NOTED.
[2019-03-06 19:27] VITALS: BP 112/69
[2019-03-07 03:54] VITALS: BP 139/94
--- NOTE | 2019-03-07 05:37 | NUR ---
ASSUMED CARE AT 1900, ASSESSMENT COMPLETED x3 OVERNIGHT. PT REPORTS MILD TIGHTNESS TO RIGHT LATERAL CHEST/BACK AT INCISION SITE, STATES IT ISN'T PAIN OR SOB BUT MORE OF A PUSHING DISCOMFORT, AND COMPLAINS HE CAN'T GET COMFORTABLE/FALL ASLEEP OVERNIGHT; GIVEN TYLENOL ONCE. DENIES NAUSEA, TOLERATING DIET. URINATING WELL OVERNIGHT, CLEAR DARK YELLOW URINE. HS ACCUCHECK WAS 136, THIS IS THE LOWEST SUGAR PT HAS HAD, DISCUSSED INSULIN DOSING WITH PT; AGREED TO GIVE 3 UNITS LISPRO RATHER THAN FULL 8 UNITS ACCORDING TO VERY HIGH SCALE; ALSO GAVE PT A SNACK OF PEANUT BUTTER AND JEFFERY CRACKERS. CHANGED BANDAGE COVERING CHEST TUBE SITE, OLD YELLOW DRAINAGE PRESENT, NO ACTIVE DRAINAGE. PAVEL TO BACK INTACT. HAS BEEN SR HR IN 80'S OVERNIGHT, OCCASIONALLY UP TO 120'S WITH ACTIVITY. NO OTHER CONCERNS, WILL CONITNUE TO MONITOR.
[2019-03-07 07:10] VITALS: BP 131/79
--- NOTE | 2019-03-07 09:31 | NUR ---
Assumed care of pt at 0700. Pt alert and oriented x4. Surgical dressing clean and intact. Room air. Pain tolerable. Worked with PT this am and did very well. No other c/o this am. Pt hopes to discharge to home today. Will continue to monitor.
[2019-03-07 11:08] LABS: HEMOGLOBIN 13.5 gm/dL (14.0-18.0); MCH 27.3 pg (26.0-34.0); MCHC 32.8 g/dL (28.0-37.0); MCV 83.1 fL (80.0-100.0); PLATELET COUNT 502 thou/uL (150-400); RBC 4.94 mil/uL (4.50-6.00); RDW 14.1 % (10.5-14.5); WBC 17.7 thou/uL (4.0-11.0)
[2019-03-07 11:18] VITALS: BP 104/55
[2019-03-07 11:40] LABS: ABSOLUTE NEUTROPHILS 15.2 thou/uL (1.4-8.2)
[2019-03-07] MEDS ORDERED: CLEOCIN HCL150 MG PO (12:27)
[2019-03-07] MEDS ORDERED: HYDROCODON-ACE1 EAC7 PO (12:33)
[2019-03-07] MEDS ORDERED: LISINOPRIL10 MG PO (12:33)
[2019-03-07] MEDS ORDERED: NORVASC10 MG PO (12:33)
[2019-03-07] MEDS ORDERED: METFORMIN HCL500 MG PO (12:34)
[2019-03-07] MEDS ORDERED: PREDNISONE 10 M10 MG PO (12:34)
[2019-03-07 12:39] VITALS: BP 104/55
--- NOTE | 2019-03-07 15:15 | NUR ---
DISCHARGE NOTE: IRVING reviewed chart and spoke with nursing and attending physician. Pt is medically stable for discharge home today. Pt will be on PO abx. IRVING met with pt at bedside to discuss discharge plan. IRVING provided pt with [facility] Health Resource Guide and prescription discount card. IRVING explained that scripts will be vouched at [facility] and he will be able to pick them out once discharged. IRVING took scripts and face shee to the outpatient pharmacy. IRVING discussed with Director of Case Mgmt, who authorized meds to be vouched. Awiating final total. Pharmacy to contact pt's nurse to notify when meds are ready. Pt has transportation home. IRVING is following to assist as needed with discharge planning.
== END 2019-03-07 15:30 | disposition home or self-care (01) | DRG 853 ==
LOC: ER 19:41 → ICU 22:05 → EROBS 22:05 → ICU 02-22 00:05 → 3W 03-05 10:47
PROVIDERS: Emergency Medicine; Internal Medicine Infectious Disease; Internal Medicine Pulmonary Disease; Nurse Practitioner Family; Pediatrics; Physician Assistant; Surgery Vascular Surgery; ADMIT Hospitalist
PROC: 5A09457 Assistance with Respiratory Ventilation, 24-96 Consecutive Hours, Continuous Positive Airway Pressure (ICD-10-PCS; principal; 2019-02-22)
PROC: 0B9C8ZX Drainage of Right Upper Lung Lobe, Via Natural or Artificial Opening Endoscopic, Diagnostic (ICD-10-PCS; 2019-02-24)
PROC: 5A1945Z Respiratory Ventilation, 24-96 Consecutive Hours (ICD-10-PCS; 2019-02-24)
PROC: 0BH17EZ Insertion of Endotracheal Airway into Trachea, Via Natural or Artificial Opening (ICD-10-PCS; 2019-02-24)
PROC: 0W9930Z Drainage of Right Pleural Cavity with Drainage Device, Percutaneous Approach (ICD-10-PCS; 2019-02-24)
PROC: 05HY33Z Insertion of Infusion Device into Upper Vein, Percutaneous Approach (ICD-10-PCS; 2019-02-24)
PROC: 5A09357 Assistance with Respiratory Ventilation, Less than 24 Consecutive Hours, Continuous Positive Airway Pressure (ICD-10-PCS; 2019-02-26)
PROC: 5A1945Z Respiratory Ventilation, 24-96 Consecutive Hours (ICD-10-PCS; 2019-02-27)
PROC: 0BH17EZ Insertion of Endotracheal Airway into Trachea, Via Natural or Artificial Opening (ICD-10-PCS; 2019-02-27)
PROC: 0BNC0ZZ Release Right Upper Lung Lobe, Open Approach (ICD-10-PCS; 2019-02-27)
PROC: 0BJ08ZZ Inspection of Tracheobronchial Tree, Via Natural or Artificial Opening Endoscopic (ICD-10-PCS; 2019-02-27)
DX: A41.9 Sepsis, unspecified organism (principal); J96.01 Acute respiratory failure with hypoxia; J85.1 Abscess of lung with pneumonia; J85.0 Gangrene and necrosis of lung; J98.11 Atelectasis; E44.0 Moderate protein-calorie malnutrition; I48.91 Unspecified atrial fibrillation; R65.20 Severe sepsis without septic shock; E11.65 Type 2 diabetes mellitus with hyperglycemia; Z88.0 Allergy status to penicillin; Z90.49 Acquired absence of other specified parts of digestive tract; Z68.33 Body mass index [BMI] 33.0-33.9, adult
CPT/HCPCS: 10078; 10203; 10879; 27000; 47405; 50101; 50386; 50417; 50497; 50607; 50649; 52189; 52265; 54118; 56524; 56525; 56526; 57116; 62110; 62900; 65020; 65040